=== PATIENT | male | born 1955 | race Caucasian/White ===

== ENCOUNTER → 2016-12-15 | Outpatient (REF) ==
--- NOTE | 2016-12-15 14:50 | REP ---
Clinical: Pain and disability. Technique: AP, lateral, cone down views of the lumbosacral spine. Findings: Alignment and lordosis maintained. No acute fracture / compression injury or subluxation. Moderate multilevel degenerative changes include endplate sclerosis, very subtle early marginal spurring and minimal disc space narrowing. Impression: Moderate multilevel degenerative changes suggested. No acute fracture / compression injury or subluxation. Signed by Kal Pitts MD 12/15/2016 02:42 P
== END ==
LOC: M SMT 12:09
PROVIDERS: ATTEND Internal Medicine
DX: M54.5 Low back pain (principal)